=== PATIENT | female | born 2000 | race Caucasian/White ===

== ENCOUNTER → 2023-08-03 10:39 | Outpatient (REF) | payer BC, SELFPAY | LOC: RAD 10:39 | PROVIDERS: ATTENDING PHYSICIAN Physician Assistant | DX: M25.511 Pain in right shoulder (principal); M54.6 Pain in thoracic spine; M54.50 Low back pain, unspecified | CPT/HCPCS: 72072; 72110; 73030 ==

== ENCOUNTER 2023-12-30 01:48 | Emergency (ER) | payer BC, SELFPAY ==
[2023-12-30 01:50] VITALS: BP 149/94
--- NOTE | 2023-12-30 02:06 | ED.GENMED ---
History of Present Illness
General
Chief Complaint: Skin Problem
Source: patient
Time Seen by Provider: 12/30/23 01:57
History of Present Illness
History of Present Illness:
23-year-old female presents to the emergency room complaining of a area of redness on her right lateral calf. Patient believes she sustained a bug bite 2 or 3 days ago. She is not sure what the bug was but she assumed it was a mosquito. She feels
subjective fever and some nausea.
Phy Exam
Physical Exam
Physical Exam:
General: Awake, Alert, Oriented X3. No acute distress.
Vitals: unremarkable
Head: Atraumatic
Eyes: Pupils equal, EOMI
Throat: Airway intact, no exudates
Neck: Trachea midline
Neuro: Nonfocal
Skin: Warm, dry, no rash
Extremities: pulses equal b/l, no edema. Right lateral calf has a area of redness which is about 5 mm in diameter and is dark red. Surrounding this area is a more pale area of erythema which is about 3 to 4 cm in diameter.
Course
Orders/Labs/Results
Orders:
Orders
12/30/23 02:04
Test Result ONCE
12/30/23 02:25
HCG, Urine Qualitative Screen Urgent
Date Specimen was Collected: 12/30/23
Time Specimen was Collected: 02:22
12/30/23 02:29
Ondansetron Orally Disint [Zofran Odt (Orally Disintegrating)] 4 mg PO NOW STA
12/30/23 03:06
Doxycycline [Vibramycin] 100 mg PO NOW STA
Vital Signs
Initial and Last Documented VS:
Initial Vital Signs
Temp Pulse Resp BP Pulse Ox
98.1 F 115 18 149/94 99
12/30/23 01:50 12/30/23 01:50 12/30/23 01:50 12/30/23 01:50 12/30/23 01:50
Last Documented Vital Signs
Temp Pulse Resp BP Pulse Ox
98.1 F 78 18 127/75 100
12/30/23 01:50 12/30/23 02:07 12/30/23 02:07 12/30/23 02:07 12/30/23 02:07
MDM/Problems Addressed
Differential Diagnosis Includes:
Local reaction to insect bite, Lyme disease, cellulitis
MDM/Problems Addressed:
I have moderate concern for Lyme. Therefore we will treat with doxycycline.
*Pulse Oximetry
Patient hypoxic: no
*Critical Care Note
Total Time (30-74mins, 75-104mins- exclusive of procedures): Not Applicable
ED Attending Note
-
Portions of this chart may have been created with voice recognition software.� Occasional wrong word or��sound alike� substitutions may have occurred due to the inherent limitations of voice recognition software.
Discharge Plan
Departure
Patient Disposition: Home (Routine Discharge)
Date of Disposition: 12/30/23
Time of Disposition: 03:05
Patient with high blood pressure during this ER visit?: No
Condition: Good
Discharge Problem:
Insect bite, Rash
Instructions: Lyme Disease (DC), Insect Bites and Stings ED
Prescriptions:
New
doxycycline hyclate 100 mg capsule
100 mg PO BID Qty: 28 0RF
No Action
Control
1 tab PO DAILY
Patient Comments:
pt does not know name of bcp
Referrals:
Rick Mcginnis MD [Family Provider] -
Interventions
Interventions:
*Risk Screen - Suicide Last Done: 12/30/23 01:50
*General Assessment Last Done: 12/30/23 01:50
*Neglect/Abuse Screening Last Done: 12/30/23 01:50
ED-Skin Assessment Last Done: 12/30/23 02:04
Discharge Date and Time
Print Language: ICELANDIC
[2023-12-30 02:07] VITALS: BP 127/75
[2023-12-30 02:35] LABS: HCG, Urine Qualitative Screen Negative
[2023-12-30] MEDS: ZOFRAN ODT (ORALLY DISINTEGRATING) 4 MG PO (02:40)
[2023-12-30 03:25] VITALS: BP 119/75
[2023-12-30] MEDS: VIBRAMYCIN 100 MG PO (03:25)
== END 2023-12-30 03:27 | disposition home or self-care (01) ==
LOC: EMR 01:48
PROVIDERS: EMERGENCY PHYSICIAN Emergency Medicine; FAMILY PHYSICIAN Family Medicine
DX: S80.861A Insect bite (nonvenomous), right lower leg, initial encounter (principal); W57.XXXA Bitten or stung by nonvenomous insect and other nonvenomous arthropods, initial encounter; R21 Rash and other nonspecific skin eruption
CPT/HCPCS: 99283; 81025

== ENCOUNTER → 2024-03-28 13:43 | Outpatient (REF) | payer BC, SELFPAY | LOC: MRI 3T 13:43 | PROVIDERS: ATTENDING PHYSICIAN Physical Medicine & Rehabilitation Sports Medicine; FAMILY PHYSICIAN Family Medicine | DX: M25.511 Pain in right shoulder (principal); S43.439A Superior glenoid labrum lesion of unspecified shoulder, initial encounter | CPT/HCPCS: 23350; 73040; 73222 ==

== ENCOUNTER 2024-05-26 21:58 | Emergency (ER) | payer BC, SELFPAY ==
[2024-05-26 21:59] VITALS: BP 156/101
--- NOTE | 2024-05-26 23:41 | ED.GENMED ---
History of Present Illness
General
Chief Complaint: Chest Pain
Time Seen by Provider: 05/26/24 22:46
History of Present Illness
History of Present Illness:
24-year-old female without significant past medical history presenting to the emergency department for left-sided chest pain. Patient reports symptoms for the past 5 days. Pain is sharp in quality. Denies any radiation. Pain has been constant.
Reports some mild dyspnea. Denies cough or fever. Does report family history of cardiac disease, father had a heart attack at a young age. She is also on OCPs, however denies any history of blood clots, recent surgery, recent travel, exogenous
estrogen. Denies ever having this pain in the past. Denies additional acute medical complaints.
Phy Exam
Physical Exam
Physical Exam:
General: Well-appearing, no clinical signs of dehydration, nontoxic and in no acute distress
HEENT: protecting airway
Neck: appears supple
CV: Normal heart rate, regular rhythm, no evidence of cyanosis
Resp: No accessory muscle use, no increased work of breathing, lungs clear to auscultation bilaterally
Abd: No
Extremities: No deformities, no swelling
Neuro: alert, no focal neurologic deficit
: deferred
Rectal: deferred
Psych: Normal affect
Skin: Intact
Scores
Heart Score for Chest Pain Patients
STEMI patient?: No
History: Slightly or Non-Suspicious
ECG: Normal
Age: </= 45 years
Risk Factors: 1 or 2 Risk Factors
Troponin: </= Normal Limit
Heart Score for Chest Pain Patients: 1
Heart Score Risk: 2.5% MACE over next 6 weeks
Course
Orders/Labs/Results
Orders:
Orders
05/26/24 21:59
ECG [Electrocardiogram (*1)] Urgent
Reason for Study: Chest Pain
EKG- Treatment ONCE
05/26/24 23:47
Complete Blood Count/With Diff Urgent
Comprehensive Metabolic Panel Urgent
D-Dimer Urgent
HCG, Serum Qualitative Screen Urgent
Comment: ADD ON
Troponin I Urgent
05/27/24 00:47
Add On- LAB Urgent
Tests Added?: serum
CT Chest Pe Study Urgent
Comment:
Reason For Exam: chest pain, positive dimer
Abnormal Lab Results
05/26/24
23:47
WBC 12.6 H 10^3/uL
(4.8-10.8)
RBC 4.00 L 10^6/uL
(4.20-5.40)
Hgb 11.7 L g/dL
(12.0-16.0)
Hct 35.3 L %
(37.0-47.0)
Absolute Neuts (auto) 8.0 H 10^3/uL
(1.4-6.5)
Absolute Lymphs (auto) 3.5 H 10^3/uL
(1.2-3.4)
Absolute Monos (auto) 0.9 H 10^3/uL
(0.1-0.6)
D-Dimer 0.80 H ug/mlFEU
(0.00-0.50)
Creatinine 0.5 L mg/dL
(0.6-1.0)
Total Bilirubin 0.1 L mg/dl
(0.2-1.3)
05/26/24 23:47
05/26/24 23:47
Vital Signs
Initial and Last Documented VS:
Initial Vital Signs
Temp Pulse Resp BP Pulse Ox
98.4 F 78 16 156/101 100
05/26/24 21:59 05/26/24 21:59 05/26/24 21:59 05/26/24 21:59 05/26/24 21:59
Last Documented Vital Signs
Temp Pulse Resp BP Pulse Ox
98.4 F 91 20 123/93 98
05/26/24 21:59 05/27/24 02:47 05/27/24 02:47 05/27/24 02:47 05/27/24 02:56
MDM/Problems Addressed
MDM/Problems Addressed:
24-year-old female presenting for 5 days of left-sided chest pain. Vital signs are normal.
On exam patient is resting comfortably, no acute distress or discomfort. Unremarkable cardiac and pulmonary exam with the exception of reproducible tenderness to the left chest wall. Suspected musculoskeletal quality to pain. Patient does have
some family history of cardiac disease so EKG obtained, nonischemic. Will screen further with troponin. Cannot satisfy PERC rule given that patient is on OCPs. Will screen with D-dimer.
Labs are unremarkable with undetectable troponin, patient low risk by heart score. Dimer slightly positive, so we will proceed with CT chest.
CT chest without any evidence of PE or acute pulmonary process. Patient remains hemodynamically stable. Feel stable for discharge with close interval follow-up with primary care doctor. Return precautions discussed
*EKG
Interpreted by ED Provider?: Yes
EKG Intrepretation Date: 05/26/24
EKG Intrepretation Time: 23:46
Interpretation: normal
Heart Rate: 81
Rate: normal
Rhythm: sinus
[place]: normal axis
Interval: normal interval
QRS Pattern: normal QRS
Ischemia: no ischemia
*Critical Care Note
Total Time (30-74mins, 75-104mins- exclusive of procedures): Not Applicable
ED Attending Note
-
Portions of this chart may have been created with voice recognition software.� Occasional wrong word or��sound alike� substitutions may have occurred due to the inherent limitations of voice recognition software.
Discharge Plan
Departure
Patient Disposition: Home (Routine Discharge)
Date of Disposition: 05/27/24
Time of Disposition: 02:11
Patient with high blood pressure during this ER visit?: No
Condition: Good
Discharge Problem:
Chest wall pain
Instructions: Chest pain - Discharge instructions
Prescriptions:
No Action
Control
1 tab PO DAILY
Patient Comments:
pt does not know name of bcp
doxycycline hyclate 100 mg capsule
100 mg PO BID Qty: 28 0RF
Referrals:
Rick Mcginnis MD [Family Provider] -
Activity Restrictions/Additional Instructions:
You were seen in the emergency department for chest pain
You were found to have normal blood work, EKG, CT imaging of your chest without any findings of a blood clot or acute serious process.
Please follow-up closely with your primary care physician.
Return to the emergency department for any worsening of your symptoms, or any development of chest pain, difficulty breathing, abdominal pain with persistent vomiting and inability to tolerate food or liquid by mouth (concern for dehydration),
weakness, headache or confusion, fever greater than 100.4, or any additional symptoms that are concerning to you.
Thank you for choosing [facility].
Interventions
Interventions:
*Risk Screen - Suicide Last Done: 05/26/24 21:59
*General Assessment Last Done: 05/26/24 22:39
*Neglect/Abuse Screening Last Done: 05/26/24 21:59
ED- Fall Risk Assessment Last Done: 05/26/24 23:50
*ED COVID-19 Vaccine History Last Done: 05/26/24 22:39
*Nursing Disposition Last Done: 05/27/24 02:56
ED- Cardiac Assessment Last Done: 05/26/24 23:50
Discharge Date and Time
Discharge Date/Time: 05/27/24 02:57
Print Language: CUBAN
[2024-05-27 00:05] LABS: % Basophils 0.2 % (0-2); % Eosinophils 1.3 % (0-6); % Immature Granulocytes 0.3 % (0-0.5); % Lymphocytes 27.8 % (20.5-51.1); % Neutrophils 63.4 % (42.2-75.2); Absolute Eosinophils 0.2 10^3/uL (0-0.7); Absolute Lymphocytes 3.5 10^3/uL (1.2-3.4); Absolute Monocytes 0.9 10^3/uL (0.1-0.6); Hematocrit 35.3 % (37.0-47.0); Hemoglobin 11.7 g/dL (12.0-16.0); Mean Corp Hgb Conc. 33.1 g/dL (33.0-37.0); Mean Corpuscular Hgb 29.3 pg (27.0-31.0); Mean Corpuscular Volume 88.3 fL (81.0-99.0); Mean Platelet Volume 10.1 fL (7.4-10.4); Nucleated Red Blood Cells % 0 %; Platelet Count 295 10^3/uL (130-400); Red Cell Dist. Width 13.2 % (11.5-14.5); White Blood Cell Count 12.6 10^3/uL (4.8-10.8)
[2024-05-27 00:21] LABS: ALT (SGPT) 18 U/L (0-35); AST (SGOT) 22 U/L (14-36); Albumin 4.1 g/dl (3.5-5.0); Alkaline Phosphatase 46 U/L (38-126); Blood Urea Nitrogen 11 mg/dl (7-17); Calcium 9.2 mg/dl (8.4-10.2); Carbon Dioxide 24 mmol/L (22-30); Chloride 102 mmol/L (98-107); Glucose 87 mg/dl (70-99); Potassium 3.8 mmol/L (3.5-5.1); Sodium 135 mmol/L (135-145); Total Bilirubin 0.1 mg/dl (0.2-1.3); Total Protein 6.8 g/dl (6.3-8.2); eGFR > 60.00
[2024-05-27 00:31] LABS: Troponin I < 0.012 ng/ml
[2024-05-27 01:09] LABS: HCG, Serum Qualitative Screen Negative
[2024-05-27 02:08] VITALS: BP 123/93
[2024-05-27 02:47] VITALS: BP 123/93
== END 2024-05-27 02:57 | disposition home or self-care (01) ==
LOC: EMR 21:58
PROVIDERS: EMERGENCY PHYSICIAN Student in an Organized Health Care Education/Training Program; FAMILY PHYSICIAN Family Medicine
DX: R07.89 Other chest pain (principal); Z82.49 Family history of ischemic heart disease and other diseases of the circulatory system
CPT/HCPCS: 99285; 71275; 80053; 84484; 84703; 85025; 85379; 93005; Q9967

== ENCOUNTER 2024-05-31 19:05 | Emergency (ER) | payer BC, SELFPAY ==
[2024-05-31 19:09] VITALS: BP 170/96
--- NOTE | 2024-05-31 23:06 | ED.GENMED ---
History of Present Illness
General
Chief Complaint: Chest Pain
Time Seen by Provider: 05/31/24 23:04
History of Present Illness
History of Present Illness:
TIME OF INITIAL ENCOUNTER: 11:10 PM
HPI: Patient presents with chest discomfort. The patient was seen here 4 days ago with similar symptoms.
EXAM:
NUMBER AND COMPLEXITY OF PROBLEMS ADDRESSED AT THE ENCOUNTER
� Chronic conditions affecting care: 'Gastric inflammation'
� Acute Exacerbation and/or Progression of Chronic Illness:
� Differential Diagnosis includes:
AMOUNT AND/OR COMPLEXITY OF DATA TO BE REVIEWED AND ANALYZED
� I performed an independent evaluation of and my interpretation is:
EKG: Sinus 75, normal axis, no acute ST abnormality, no change from 05/26/2024
CT:
X-rays:
Laboratory Studies:
Other:
� Review of other/old records: I reviewed records, the patient had a D-dimer of 0.8 from 05/27/2024�CTA at that time was negative
� Clinical information was obtained by an independent historian:
� Prescriptions/Medications Considered but not given:
� Further testing considered but not performed:
RISK OF COMPLICATIONS AND/OR MORBIDITY OR MORTALITY OF PATIENT MANAGEMENT
� Social determinants of health affecting care:
� Discussion with other providers:
� Escalation of care including admission/observation vs risk of discharge considered:
ANY OTHER UPDATES:
Course
Orders/Labs/Results
Orders:
Orders
05/31/24 19:07
Electrocardiogram (*1) Urgent
Reason for Study: Chest Pain
EKG- Treatment ONCE
05/31/24 19:14
Comprehensive Metabolic Panel Urgent
05/31/24 19:42
Complete Blood Count/With Diff Urgent
05/31/24 19:58
Troponin I Urgent
Vital Signs
Initial and Last Documented VS:
Initial Vital Signs
Temp Pulse Resp BP Pulse Ox
36.7 C 69 18 170/96 99
05/31/24 19:09 05/31/24 19:09 05/31/24 19:05/31/24 19:09 05/31/24 19:09
Last Documented Vital Signs
Temp Pulse Resp BP Pulse Ox
36.7 C 69 18 170/96 99
05/31/24 19:09 05/31/24 19:09 05/31/24 19:09 05/31/24 19:09 05/31/24 19:09
ED Attending Note
-
Portions of this chart may have been created with voice recognition software.� Occasional wrong word or��sound alike� substitutions may have occurred due to the inherent limitations of voice recognition software.
Discharge Plan
Departure
Prescriptions:
No Action
Control
1 tab PO DAILY
Patient Comments:
pt does not know name of bcp
doxycycline hyclate 100 mg capsule
100 mg PO BID Qty: 28 0RF
Interventions
Interventions:
*General Assessment Last Done: 05/31/24 19:09
Discharge Date and Time
Print Language: AZERI
--- NOTE | 2024-05-31 23:16 | ED.GENMED ---
History of Present Illness
General
Chief Complaint: Chest Pain
Source: patient
Exam Limitations: none
Time Seen by Provider: 05/31/24 23:04
History of Present Illness
History of Present Illness:
24-year-old female ongoing chest pain. Continuous in nature. Symptoms been going on for weeks. Not truly pleuritic. No fever. No cough. No relief with Advil or Motrin
Past History
Past History
ED Past Medical History: Other (Gastric inflammation)
ED Past Surgical History: Other ([place] teeth)
Review of Systems
Review of Systems
All Other Systems: Not applicable
Constitutional: Denies fever or chills
Respiratory: Denies hemoptysis or trouble breathing
Phy Exam
Physical Exam
Physical Exam:
GENERAL: Alert and oriented in no apparent distress
EYE: Orbits normal.
NECK: Supple
CARDIAC: Regular rate and rhythm without any obvious murmurs. Tenderness along the anterior chest wall near the left sternal border
LUNGS: Clear breath sounds,normal
ABDOMEN: Soft, without focal tenderness or distention
NEUROLOGICAL: Alert and oriented , grossly non-focal
SKIN: Warm and dry, no rash or lesion, no discoloration, skin intact.
MUSCULOSKELETAL: No edema,no deformity.Good color
PSYCH: Normal and appropriate interaction.
Scores
Heart Score for Chest Pain Patients
STEMI patient?: Not applicable
Course
Orders/Labs/Results
Orders:
Orders
05/31/24 19:07
Electrocardiogram (*1) Urgent
Reason for Study: Chest Pain
EKG- Treatment ONCE
05/31/24 23:23
US Periph Venous LOWER Ext Elpidio Urgent
Comment:
Reason For Exam: Chest pain/positive dimer
05/31/24 23:47
Complete Blood Count/With Diff Urgent
Comprehensive Metabolic Panel Urgent
Troponin I Urgent
Abnormal Lab Results
05/31/24
23:47
MCHC 32.9 L g/dL
(33.0-37.0)
Absolute Monos (auto) 0.8 H 10^3/uL
(0.1-0.6)
Creatinine 0.5 L mg/dL
(0.6-1.0)
05/31/24 23:47
05/31/24 23:47
Vital Signs
Initial and Last Documented VS:
Initial Vital Signs
Temp Pulse Resp BP Pulse Ox
98.1 F 69 18 170/96 99
05/31/24 19:09 05/31/24 19:09 05/31/24 19:09 05/31/24 19:09 05/31/24 19:09
Last Documented Vital Signs
Temp Pulse Resp BP Pulse Ox
98 F 60 18 118/75 99
06/01/24 01:00 06/01/24 01:00 06/01/24 01:00 06/01/24 01:00 06/01/24 01:00
*EKG
Interpreted by ED Provider?: Yes
Comparison EKG: no changes
Heart Rate: 75
Rate: normal
Rhythm: sinus
[place]: normal axis
Interval: normal interval
QRS Pattern: normal QRS
Ischemia: no ischemia
*Critical Care Note
Total Time (30-74mins, 75-104mins- exclusive of procedures): Not Applicable
Update Note
Update Note:
Leg ultrasounds negative. Testing unremarkable. Patient has remained nontoxic and in no distress. Do not feel repeat the scan is warranted. Most consistent with costochondritis. Discharged to follow-up
ED Attending Note
-
Portions of this chart may have been created with voice recognition software.� Occasional wrong word or��sound alike� substitutions may have occurred due to the inherent limitations of voice recognition software.
Discharge Plan
Departure
Patient Disposition: Home (Routine Discharge)
Date of Disposition: 06/01/24
Time of Disposition: 01:18
Patient with high blood pressure during this ER visit?: No
Discharge Problem:
Atypical chest pain/costochondritis
Instructions: Costochondritis, Chest pain
Prescriptions:
No Action
Control
1 tab PO DAILY
Patient Comments:
pt does not know name of bcp
doxycycline hyclate 100 mg capsule
100 mg PO BID Qty: 28 0RF
Referrals:
Rick Mcginnis MD [Family Provider] - Follow up in 2-3 days
Interventions
Interventions:
*Risk Screen - Suicide Last Done: 06/01/24 00:07
*General Assessment Last Done: 05/31/24 19:09
*Neglect/Abuse Screening Last Done: 06/01/24 00:07
ED- Fall Risk Assessment Last Done: 06/01/24 00:08
ED- Cardiac Assessment Last Done: 05/31/24 23:55
Discharge Date and Time
Print Language: SAMI
[2024-05-31 23:59] LABS: % Basophils 0.3 % (0-2); % Eosinophils 1.8 % (0-6); % Immature Granulocytes 0.4 % (0-0.5); % Lymphocytes 31.7 % (20.5-51.1); % Monocytes 7.8 % (1.7-9.3); Absolute Eosinophils 0.2 10^3/uL (0-0.7); Absolute Lymphocytes 3.2 10^3/uL (1.2-3.4); Absolute Monocytes 0.8 10^3/uL (0.1-0.6); Absolute Neutrophils 5.8 10^3/uL (1.4-6.5); Hematocrit 41.9 % (37.0-47.0); Hemoglobin 13.8 g/dL (12.0-16.0); Mean Corp Hgb Conc. 32.9 g/dL (33.0-37.0); Mean Corpuscular Hgb 28.5 pg (27.0-31.0); Mean Corpuscular Volume 86.6 fL (81.0-99.0); Mean Platelet Volume 9.9 fL (7.4-10.4); Nucleated Red Blood Cells % 0 %; Platelet Count 364 10^3/uL (130-400); Red Blood Cell Count 4.84 10^6/uL (4.20-5.40); Red Cell Dist. Width 13.1 % (11.5-14.5)
[2024-06-01 00:06] LABS: ALT (SGPT) 20 U/L (0-35); AST (SGOT) 26 U/L (14-36); Albumin 4.8 g/dl (3.5-5.0); Alkaline Phosphatase 60 U/L (38-126); Blood Urea Nitrogen 12 mg/dl (7-17); Calcium 9.9 mg/dl (8.4-10.2); Carbon Dioxide 24 mmol/L (22-30); Chloride 102 mmol/L (98-107); Glucose 95 mg/dl (70-99); Potassium 4.2 mmol/L (3.5-5.1); Sodium 139 mmol/L (135-145); Total Bilirubin 0.3 mg/dl (0.2-1.3); Total Protein 8.1 g/dl (6.3-8.2); eGFR > 60.00
[2024-06-01 00:18] LABS: Troponin I < 0.012 ng/ml
[2024-06-01 01:00] VITALS: BP 118/75
== END 2024-06-01 01:47 | disposition home or self-care (01) ==
LOC: EMR 19:05
PROVIDERS: Emergency Medicine; EMERGENCY PHYSICIAN Emergency Medicine; FAMILY PHYSICIAN Family Medicine
DX: M94.0 Chondrocostal junction syndrome [Tietze] (principal); Z79.3 Long term (current) use of hormonal contraceptives
CPT/HCPCS: 99284; 80053; 84484; 85025; 93005; 93970